=== PATIENT | female | born 1955 | race Caucasian/White ===

== ENCOUNTER → 2019-10-10 16:42 | Outpatient (CLI) | payer OTHER, SELFPAY ==
--- NOTE | 2019-10-10 16:44 | DI.MG.S_ITS ---
BILATERAL DIGITAL SCREENING MAMMOGRAM 3D/2D WITH CAD: 10/10/2019 CLINICAL: Routine screening. Comparison is made to exams dated: 09/22/2017 mammogram, 05/12/2016 mammogram, and 05/06/2015 mammogram - [facility]. There are scattered fibroglandular elements in both breasts. Current study was also evaluated with a Computer Aided Detection (CAD) system. No significant masses, calcifications, or other findings are seen in either breast. There has been no significant interval change. IMPRESSION: NEGATIVE There is no mammographic evidence of malignancy. A 1 year screening mammogram is recommended. This exam was interpreted at Station ID: [id number]. NOTE: For mammograms, a report in lay terms will be sent to the patient. Approximately 15% of breast malignancies will not be visualized mammographically. In the management of a palpable breast mass, a negative mammogram must not discourage biopsy of a clinically suspicious lesion. Electronically Signed By: Jhon rivera/ashlee:10/10/2019 17:31:51 copy to: Radha Prado letter sent: Normal Exam ACR BI-RADS Category 1: Negative [id number]
== END ==
PROVIDERS: PCP Family Medicine; Visit Provider Family Medicine
DX: Z12.31 Encounter for screening mammogram for malignant neoplasm of breast (principal)
CPT/HCPCS: 77063; 77067

== ENCOUNTER → 2019-11-16 10:22 | Outpatient (CLI) | payer OTHER, SELFPAY ==
[2019-11-19 15:45] LABS: Fecal Immunochemical Test NOT DETECTED (NOT DETECTED)
== END ==
PROVIDERS: PCP Family Medicine; Visit Provider Family Medicine
DX: Z12.11 Encounter for screening for malignant neoplasm of colon (principal)
CPT/HCPCS: 82274

== ENCOUNTER → 2020-06-18 14:19 | Outpatient (CLI) | payer OTHER, SELFPAY | PROVIDERS: PCP Family Medicine; Referring Provider Nurse Practitioner; Visit Provider Nurse Practitioner | DX: M85.851 Other specified disorders of bone density and structure, right thigh (principal); Z78.0 Asymptomatic menopausal state; M06.9 Rheumatoid arthritis, unspecified; Z82.62 Family history of osteoporosis; Z87.891 Personal history of nicotine dependence | CPT/HCPCS: 77080 ==

== ENCOUNTER → 2020-06-20 07:56 | Outpatient (CLI) | payer OTHER, SELFPAY ==
[2020-06-20 08:38] LABS: Alanine Aminotransferase 20 IU/L (<35); Albumin 4.7 g/dL (3.5-5.0); Albumin Globulin Ratio 1.6 (1.0-2.8); Alkaline Phosphatase 60 U/L (38-126); Aspartate Aminotransferase 32 IU/L (14-36); BUN Creatinine Ratio 20.3 (6-22); Bilirubin Total 0.5 mg/dL (0.2-1.3); Blood Urea Nitrogen 12 mg/dL (7-17); Calcium 10.1 mg/dL (8.4-10.2); Carbon Dioxide 31 mmol/L (22-32); Chloride 102 mmol/L (98-107); Cholesterol 202 mg/dL (140-199); Estimated Glomerular Filt Rate > 60.0 mL/min (>60); Globulin 2.9 g/dL (1.7-4.1); Glucose 99 mg/dL (80-110); HDL Cholesterol 88 mg/dL (40-60); HEMOLYSIS < 15 (0-50); LDL Cholesterol Calculated 103 mg/dL (<100); Potassium 4.4 mmol/L (3.4-5.1); Sodium 138 mmol/L (137-145); Total Protein 7.6 g/dL (6.3-8.2); Triglycerides 53 mg/dL (35-150)
[2020-06-20 08:54] LABS: Free T4, Direct Thyroxine 0.97 ng/dL (0.78-2.19)
[2020-06-20 09:08] LABS: Thyroid Stimulating Hormone 2.95 uIU/mL (0.47-4.68)
== END ==
PROVIDERS: PCP Family Medicine; Referring Provider Nurse Practitioner; Visit Provider Nurse Practitioner
DX: Z01.84 Encounter for antibody response examination (principal); E78.5 Hyperlipidemia, unspecified
CPT/HCPCS: 36415; 80053; 80061; 84439; 84443; 84481; 86769

== ENCOUNTER 2020-08-11 15:00 | Outpatient (RCR) | payer OTHER, SELFPAY ==
--- NOTE | 2020-06-26 18:45 | PT.OIE ---
Current Diagnoses Urge incontinence (06/26/20) Past Medical History (Last Updated 06/24/20 @ 08:31 by XIN Webster) Atrophic vaginitis (Acute) Breast self examination education, encounter for (Acute) Hyperlipidemia LDL goal <100 (Acute) Osteoporosis, post-menopausal (Acute) Urinary frequency (Acute) Past Surgical History History of tonsillectomy Visit Care Team Role Provider Type Jeffrey Solraes MD Family Provider Physician Primary Care Provider Specialty: Family Practice Address: [address] [place] [address], [id number] Email: [email or web address] XIN Webster Attending Provider Advanced City Marshal Referring Provider Specialty: [facility] Address: [address] [place] [address], [address] Email: [email or web address] Physical Therapy Initial Evaluation PT-OP-A Visit Information Start: 06/26/20 08:15 Freq: Status: Active Protocol: Document 06/26/20 09:04 LRN (Rec: 06/26/20 09:49 LRN [id number]) Out-Patient Physical Therapy Visit Information Visit Information Visit Type Initial Evaluation Visit Start Time 09:04 Visit Stop Time 09:49 Total Visit Minutes 45 Visit Number 1 Evaluation Information Evaluation Date 06/26/20 Precautions Precautions Hx of back pain and arthritis PT-OP-B Current Condition Start: 06/26/20 08:15 Freq: Status: Active Protocol: Document 06/26/20 09:04 LRN (Rec: 06/26/20 09:49 LRN [id number]) Current Condition History of Current Condition Onset Date 3 yrs Current Complaints No nighttime px,small leakage with strong urge History of Current Condition Small leakage with a strong urge. Vaginal atrophy that is fairly mild and the bladder is dropped on last pelvic exam . She has been subscibed a vaginal estrogen cream but stopped because had pneumonia shot the day before and was feeling kind of sick. States she knows how to do a Kegel exercise and denies problems with bowels. Prior Treatments and Tests Estrogen cream Future Testing and Treatments Planned None Treatment Goals Patient/Caregiver Goals Pt goals are to learn exercises and self care to maintain healthy status. Would like to see what her strength is and to make progress. Pt goal is to eliminate urinary leakage with a strong urge or triggers. Prior Functional Status Baseline Function- ADL's Independent Baseline Function- Mobility Independent Baseline Function- Work/School Retired Baseline Function- Recreation/Hobbies Hikes, yoga daily, kayak and garden Current Functional Impairments (Reported) Functional Limitations- ADL's Possible leakage with strong urge or triggers (mckeon in door) . 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 PT-OP-C Subjective Start: 06/26/20 08:15 Freq: Status: Active Protocol: Document 06/26/20 09:04 LRN (Rec: 06/26/20 09:49 LRN [id number]) OP-PT Subjective Patient Comments Patient Comments She asked if there was any ex to do. Patient Questionnaires Pelvic Pain and Urgency/Frequency Patient Symptom Scale Pelvic Pain Score 1 PT-OP-I Pelvic Floor Start: 06/26/20 08:15 Freq: Status: Active Protocol: Document 06/26/20 09:04 LRN (Rec: 06/26/20 09:49 LRN [id number]) Pelvic Floor Assessment Urine Urinary Symptoms Urge Sensation Leakage Size Small Leakage Cause Cough,Sneeze,Urge Other Leakage Causes Triggers: Sometimes when thinking about it, When arriving home after driving (mckeon in door), Long walk. Voiding Frequency 8 Nocturia 0 Pelvic Clock Pelvic Clock 12-3 Atrophy Pelvic Clock 3-6 Atrophy Pelvic Clock 6-9 Atrophy Pelvic Clock 9-12 Atrophy Prolapse Cystocele Grade 2 Urethrocele Grade 2 Prolapse Comments Uterus felt as dropped Perineal Descent Resting Absent Bearing Present Contraction Ability Voluntary Contraction Weak Manual Muscle Testing Left 0 Manual Muscle Testing Right 1 Manual Muscle Testing Anterior 0 Manual Muscle Testing Posterior 1 Muscle Endurance (Seconds) 6 Comments Pelvic Floor Comments ............ PT-OP-J Posture/Palpation/Skin Start: 06/26/20 08:15 Freq: Status: Active Protocol: Document 06/26/20 09:04 LRN (Rec: 06/26/20 09:49 LRN [id number]) Posture Evaluation Position Standing Evaluation View Posterior, Anteior & Lateral Head/C-Spine Posture Side Bent Left L-Spine Posture Increased Lordosis Pelvis Posture Anteriorly Tilted,(R) Iliac Crest Superior Weight Distribution Balanced Comments Posture Comments Pt lordosis of lower Thoracic spine with apex ~ T12. R PSIS was deep. R leg reported long by pt and R Iliac Crest was high. PT-OP-K Range of Motion Start: 06/26/20 08:15 Freq: Status: Active Protocol: Document 06/26/20 09:04 LRN (Rec: 06/26/20 09:49 LRN [id number]) Lumbar Spine Range of Motion Lumbar Spine Active Degrees Testing Position Standing Flexion 100 Extension 10 Hip Goniometric Range of Motion Hip Right Passive Testing Position Supine Flexion w/Knee Flexed 130 Abduction 30 Internal Rotation 50 External Rotation 50 Left Passive Testing Position Supine Flexion w/Knee Flexed 130 Abduction 30 Internal Rotation 35 External Rotation 65 PT-OP-M Strength Start: 06/26/20 08:15 Freq: Status: Active Protocol: Document 06/26/20 09:04 LRN (Rec: 06/26/20 09:49 LRN [id number]) Trunk Strength Trunk Manual Muscle Testing Core Stabilization Pt not able to maintain a stable core during strength testing of hip flexors. Hip Strength Hip Manual Muscle Testing Right Flexion (L2) 5 Normal Abduction 5 Normal Adduction 3+ Fair+ External Rotation 5 Normal Internal Rotation 5 Normal Left Flexion (L2) 5 Normal Abduction 5 Normal Adduction 3 Fair External Rotation 4+ Good+ Internal Rotation 5 Normal PT-OP-Q Treatments Start: 06/26/20 08:15 Freq: Status: Active Protocol: Document 06/26/20 09:04 LRN (Rec: 06/26/20 18:42 LRN [id number]) Self-Care/Home Management Treatment Education Patient Education Home Exercise Program Other Education Educated pt in completion of Bladder Diary. Discussed results of evaluation and plan of care. Educated pt in pelvic floor anatomy. Activities Self-Care/Home Management Activities Issued, reviewed, discussed Bladder Diary to complete over the next 7 days. Issued, reviewed, discussed HEP: Kegels quick flicks, long holds & aggravators. PT-OP-T Assessment and Plan Start: 06/26/20 08:15 Freq: Status: Active Protocol: Document 06/26/20 09:04 LRN (Rec: 06/26/20 09:49 LRN [id number]) Physical Therapy Assessment Rehab Potential Rehabilitation Potential Good Evaluation Complexity Number of Personal Factors/Comorbidities 1-2 Number of Body Systems Impaired 3 Clinical Presentation at Evaluation Evolving Impairments Impairments Activity Tolerance,ROM, Strength Goals Four Impairment Urinary leakage with a strong urge Short Term Goal (STG) Pt will be educated in Delay technique for improved bladder control. STG Duration 07/04/20 Jail Goal (LTG) Pt will be able to maintain continence in the presence of a strong urge. LTG Duration 08/25/20 Three Impairment Decrease endurance of PF, holding 6 secs prior to fatigue Jail Goal (LTG) Pt will be able to hold a PF contraction for 10 secs prior to fatigue. LTG Duration 08/25/20 Two Impairment Decreased PF strength Short Term Goal (STG) Pt will improve her PF strength to generally 1/5. STG Duration 07/11/20 Jail Goal (LTG) Pt will improve her PF strength to 3-4/5. LTG Duration 08/25/20 One Impairment Pt lacks appropriate self care HEP Senior It Architect Goal (LTG) Pt will be independent in a self care HEP to maintain continence and strength of her PF. LTG Duration 08/25/20 Assessment Summary Assessment Pt presents with cystocele & rectocele grade II. Her uterus also appears dropped. She has no areas of pain in her PF just weakness. She appears able to hold a contraction for 6 secs, but has no lift of the PF except in the posterior region, rated 1/5. The pt will benefit from skilled physical therapy to improve her PF strength and her level of continence. Physical Therapy Plan Frequency and Duration Frequency of Treatment 1x/Week Duration of Treatment 8 weeks Plan of Care Start Date 06/26/20 Plan of Care End Date 08/25/20 Therapeutic Interventions Therapeutic Interventions Home Exercise Program,Manual Therapy,Patient/Caregiver Education,Self-Care/Home Management,Soft Tissue Mobilization,Therapeutic Exercises Next Visit Focus/Plan Next Note Type Treatment Note Next Visit Plan Review bladder diary and discuss fluid intakes/outputs as appropriate. Assess proper breathing and transfers. EMG assessment and PF awareness training with E-Stim per vaginal electrode. Strengthening focusing on anterior and lateral daly. HEP: Hip ER R>L, IR left, and hip AD stretches; strengthening of hip AD's and ER on left. Educate in Delay technique for bladder retraining. PF strengthening.
--- NOTE | 2020-06-26 18:45 | PT.OPPOC ---
Physical, Occupational & Speech Therapy At [facility] Current Diagnoses Urge incontinence (06/26/20) Visit Care Team Role Provider Type Jeffrey Solares MD Family Provider Physician Primary Care Provider Specialty: Family Practice Address: [address] [place] [address], [id number] Email: [email or web address] XIN Webster Attending Provider Advanced Delivery Truck Driver Heavy Referring Provider Specialty: [facility] Practice Address: [address] [place] [address], [address] Email: [email or web address] Plan Of Care PT-OP-T Assessment and Plan Start: 06/26/20 08:15 Freq: Status: Active Protocol: Document 06/26/20 09:04 LRN (Rec: 06/26/20 09:49 LRN [id number]) Physical Therapy Assessment Rehab Potential Rehabilitation Potential Good Evaluation Complexity Number of Personal Factors/Comorbidities 1-2 Number of Body Systems Impaired 3 Clinical Presentation at Evaluation Evolving Impairments Impairments Activity Tolerance,ROM, Strength Goals Four Impairment Urinary leakage with a strong urge Short Term Goal (STG) Pt will be educated in Delay technique for improved bladder control. STG Duration 07/04/20 Child Care Specialist Goal (LTG) Pt will be able to maintain continence in the presence of a strong urge. LTG Duration 08/25/20 Three Impairment Decrease endurance of PF, holding 6 secs prior to fatigue Child Care Specialist Goal (LTG) Pt will be able to hold a PF contraction for 10 secs prior to fatigue. LTG Duration 08/25/20 Two Impairment Decreased PF strength Short Term Goal (STG) Pt will improve her PF strength to generally 1/5. STG Duration 07/11/20 Correction Goal (LTG) Pt will improve her PF strength to 3-4/5. LTG Duration 08/25/20 One Impairment Pt lacks appropriate self care HEP Child Care Specialist Goal (LTG) Pt will be independent in a self care HEP to maintain continence and strength of her PF. LTG Duration 08/25/20 Assessment Summary Assessment Pt presents with cystocele & rectocele grade II. Her uterus also appears dropped. She has no areas of pain in her PF just weakness. She appears able to hold a contraction for 6 secs, but has no lift of the PF except in the posterior region, rated 1/5. The pt will benefit from skilled physical therapy to improve her PF strength and her level of continence. Physical Therapy Plan Frequency and Duration Frequency of Treatment 1x/Week Duration of Treatment 8 weeks Plan of Care Start Date 06/26/20 Plan of Care End Date 08/25/20 Therapeutic Interventions Therapeutic Interventions Home Exercise Program,Manual Therapy,Patient/Caregiver Education,Self-Care/Home Management,Soft Tissue Mobilization,Therapeutic Exercises Next Visit Focus/Plan Next Note Type Treatment Note Next Visit Plan Review bladder diary and discuss fluid intakes/outputs as appropriate. Assess proper breathing and transfers. EMG assessment and PF awareness training with E-Stim per vaginal electrode. Strengthening focusing on anterior and lateral daly. HEP: Hip ER R>L, IR left, and hip AD stretches; strengthening of hip AD's and ER on left. Educate in Delay technique for bladder retraining. PF strengthening. Plan of Care Dates Plan of Care Start Date 06/26/20 Plan of Care End Date 08/25/20 Electronically Signed by: Elsa Momin, PT 06/28/20 398 Please Sign and Return: I have reviewed this Plan of Care and certify that the skilled therapy services above are required to meet the patient?s needs. Physician Signature Date Printed Name and Credentials Clinical Instructor Signature Printed Name and Credentials
--- NOTE | 2020-07-21 15:40 | PT.OTN ---
Current Diagnoses Urge incontinence (07/21/20) Physical Therapy Treatment Note PT-OP-A Visit Information Start: 06/26/20 08:15 Freq: Status: Active Protocol: Document 07/21/20 14:24 LRN (Rec: 07/21/20 14:44 LRN [id number]) Out-Patient Physical Therapy Visit Information Visit Information Visit Type Treatment Note Visit Start Time 14:24 Visit Stop Time 15:10 Total Visit Minutes 46 Visit Number 2 Evaluation Information Evaluation Date 06/26/20 Precautions Precautions Hx of back pain and arthritis PT-OP-B Current Condition Start: 06/26/20 08:15 Freq: Status: Active Protocol: Document 06/26/20 09:04 LRN (Rec: 06/26/20 09:49 LRN [id number]) Current Condition History of Current Condition Onset Date 3 yrs Current Complaints No nighttime px,small leakage with strong urge History of Current Condition Small leakage with a strong urge. Vaginal atrophy that is fairly mild and the bladder is dropped on last pelvic exam . She has been subscibed a vaginal estrogen cream but stopped because had pneumonia shot the day before and was feeling kind of sick. States she knows how to do a Kegel exercise and denies problems with bowels. Prior Treatments and Tests Estrogen cream Future Testing and Treatments Planned None Treatment Goals Patient/Caregiver Goals Pt goals are to learn exercises and self care to maintain healthy status. Would like to see what her strength is and to make progress. Pt goal is to eliminate urinary leakage with a strong urge or triggers. Prior Functional Status Baseline Function- ADL's Independent Baseline Function- Mobility Independent Baseline Function- Work/School Retired Baseline Function- Recreation/Hobbies Hikes, yoga daily, kayak and garden Current Functional Impairments (Reported) Functional Limitations- ADL's Possible leakage with strong urge or triggers (mckeon in door) . 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 PT-OP-I Pelvic Floor Start: 06/26/20 08:15 Freq: Status: Active Protocol: Document 06/26/20 09:04 LRN (Rec: 06/26/20 09:49 LRN [id number]) Pelvic Floor Assessment Urine Urinary Symptoms Urge Sensation Leakage Size Small Leakage Cause Cough,Sneeze,Urge Other Leakage Causes Triggers: Sometimes when thinking about it, When arriving home after driving (mckeon in door), Long walk. Voiding Frequency 8 Nocturia 0 Pelvic Clock Pelvic Clock 12-3 Atrophy Pelvic Clock 3-6 Atrophy Pelvic Clock 6-9 Atrophy Pelvic Clock 9-12 Atrophy Prolapse Cystocele Grade 2 Urethrocele Grade 2 Prolapse Comments Uterus felt as dropped Perineal Descent Resting Absent Bearing Present Contraction Ability Voluntary Contraction Weak Manual Muscle Testing Left 0 Manual Muscle Testing Right 1 Manual Muscle Testing Anterior 0 Manual Muscle Testing Posterior 1 Muscle Endurance (Seconds) 6 Comments Pelvic Floor Comments ............ PT-OP-J Posture/Palpation/Skin Start: 06/26/20 08:15 Freq: Status: Active Protocol: Document 06/26/20 09:04 LRN (Rec: 06/26/20 09:49 LRN [id number]) Posture Evaluation Position Standing Evaluation View Posterior, Anteior & Lateral Head/C-Spine Posture Side Bent Left L-Spine Posture Increased Lordosis Pelvis Posture Anteriorly Tilted,(R) Iliac Crest Superior Weight Distribution Balanced Comments Posture Comments Pt lordosis of lower Thoracic spine with apex ~ T12. R PSIS was deep. R leg reported long by pt and R Iliac Crest was high. PT-OP-K Range of Motion Start: 06/26/20 08:15 Freq: Status: Active Protocol: Document 06/26/20 09:04 LRN (Rec: 06/26/20 09:49 LRN [id number]) Lumbar Spine Range of Motion Lumbar Spine Active Degrees Testing Position Standing Flexion 100 Extension 10 Hip Goniometric Range of Motion Hip Right Passive Testing Position Supine Flexion w/Knee Flexed 130 Abduction 30 Internal Rotation 50 External Rotation 50 Left Passive Testing Position Supine Flexion w/Knee Flexed 130 Abduction 30 Internal Rotation 35 External Rotation 65 PT-OP-M Strength Start: 06/26/20 08:15 Freq: Status: Active Protocol: Document 06/26/20 09:04 LRN (Rec: 06/26/20 09:49 LRN [id number]) Trunk Strength Trunk Manual Muscle Testing Core Stabilization Pt not able to maintain a stable core during strength testing of hip flexors. Hip Strength Hip Manual Muscle Testing Right Flexion (L2) 5 Normal Abduction 5 Normal Adduction 3+ Fair+ External Rotation 5 Normal Internal Rotation 5 Normal Left Flexion (L2) 5 Normal Abduction 5 Normal Adduction 3 Fair External Rotation 4+ Good+ Internal Rotation 5 Normal PT-OP-Q Treatments Start: 06/26/20 08:15 Freq: Status: Active Protocol: Document 07/21/20 14:24 LRN (Rec: 07/21/20 14:44 LRN [id number]) Therapeutic Exercises Supine Exercises Ball Squeeze Supine Exercise Name [place]e Ball squeeze with legs rolled in and legs in neutral Reps/Minutes 10 x each Comments Extra time for finding best position of legs for anterior/ lateral wall ex. LE roll in/out Supine Exercise Name LE Roll in/out with T-Band and ball and PF contraction Reps/Minutes 10x with 6 breaths Comments Extra time for proper timing and performance of ex. Sitting Exercises Sit to stand w/breathing/PF contaction Sitting Exercise Name Sit to stand w/proper breathing/PF contraction Comments Training for PF lift awareness . Defer technique reviewed Sitting Exercise Name Defer technique training for when to use. Self-Care/Home Management Treatment Education Other Education Reviewed bladder diary and discussed possible changes in fluid intake to decreased # of voiding times during the day. Educated pt, discussed and reviewed bladder irritants. Activities Self-Care/Home Management Activities Issued & reviewed Defer technique to avoid leakage with a sudden urge. Issue & reviewed HEP for LE roll in/out with deep breathing & sitting roll in/ outs. Issued Lev 2 T-Band for LE roll in/out ex. PT-OP-T Assessment and Plan Start: 06/26/20 08:15 Freq: Status: Active Protocol: Document 07/21/20 14:24 LRN (Rec: 07/21/20 14:44 LRN [id number]) Physical Therapy Assessment Goals Four Impairment Urinary leakage with a strong urge Short Term Goal (STG) Pt will be educated in Delay technique for improved bladder control. STG Duration 07/04/20 (07/21/20: MET GOAL.) Life Care Planner Goal (LTG) Pt will be able to maintain continence in the presence of a strong urge. LTG Duration 08/25/20 Three Impairment Decrease endurance of PF, holding 6 secs prior to fatigue [facility] Goal (LTG) Pt will be able to hold a PF contraction for 10 secs prior to fatigue. LTG Duration 08/25/20 Two Impairment Decreased PF strength Short Term Goal (STG) Pt will improve her PF strength to generally 1/5. STG Duration 07/11/20 Life Care Planner Goal (LTG) Pt will improve her PF strength to 3-4/5. LTG Duration 08/25/20 One Impairment Pt lacks appropriate self care HEP [facility] Goal (LTG) Pt will be independent in a self care HEP to maintain continence and strength of her PF. LTG Duration 08/25/20 (07/21/20 Progress Towards Goals Progress Comments Pt educated in Delay technique for improved bladder control. She noted only 1x urinary leakage with a strong urge. Assessment Summary Assessment Pt PF strength improved with 1x leak in the presence of a strong urge. Per bladder diary the pt is voiding at a high frequency, probably due to her coffee, beer, wine, & sparkling carbonated drinks. The pt is wanting to decrease her frequency of voiding if she can. Pt demonstrates very good deep breathing ability and is quick to learn LE roll in/out exercise. Expect pt to progress quickly. Physical Therapy Plan Frequency and Duration Frequency of Treatment 1x/Week Duration of Treatment 8 weeks Plan of Care Start Date 06/26/20 Plan of Care End Date 08/25/20 Next Visit Focus/Plan Next Note Type Treatment Note Next Visit Plan Assess urinary leakage with a strong urge. Review last issued HEP (roll in/outs). EMG assessment and PF awareness training with E-Stim per vaginal electrode. Strengthening focusing on anterior and lateral daly. HEP: Hip ER R>L, IR left, and hip AD stretches; strengthening of hip AD's and ER on left. PF strengthening. Decrease visits to 1x/2 weeks once HEP issued for rechecks.
--- NOTE | 2020-07-28 16:04 | PT.OTN ---
Current Diagnoses Urge incontinence (07/28/20) Physical Therapy Treatment Note PT-OP-A Visit Information Start: 06/26/20 08:15 Freq: Status: Active Protocol: Document 07/28/20 12:49 LRN (Rec: 07/28/20 13:44 LRN [id number]) Out-Patient Physical Therapy Visit Information Visit Information Visit Type Treatment Note Visit Start Time 12:49 Visit Stop Time 13:43 Total Visit Minutes 54 Visit Number 3 Evaluation Information Evaluation Date 06/26/20 Precautions Precautions Hx of back pain and arthritis PT-OP-B Current Condition Start: 06/26/20 08:15 Freq: Status: Active Protocol: Document 06/26/20 09:04 LRN (Rec: 06/26/20 09:49 LRN [id number]) Current Condition History of Current Condition Onset Date 3 yrs Current Complaints No nighttime px,small leakage with strong urge History of Current Condition Small leakage with a strong urge. Vaginal atrophy that is fairly mild and the bladder is dropped on last pelvic exam . She has been subscibed a vaginal estrogen cream but stopped because had pneumonia shot the day before and was feeling kind of sick. States she knows how to do a Kegel exercise and denies problems with bowels. Prior Treatments and Tests Estrogen cream Future Testing and Treatments Planned None Treatment Goals Patient/Caregiver Goals Pt goals are to learn exercises and self care to maintain healthy status. Would like to see what her strength is and to make progress. Pt goal is to eliminate urinary leakage with a strong urge or triggers. Prior Functional Status Baseline Function- ADL's Independent Baseline Function- Mobility Independent Baseline Function- Work/School Retired Baseline Function- Recreation/Hobbies Hikes, yoga daily, kayak and garden Current Functional Impairments (Reported) Functional Limitations- ADL's Possible leakage with strong urge or triggers ([place] in door) . Personal Factors Other Personal Factors That May Effect Back pain 4 yrs ago after Therapy/Recovery bending over to nut picker something. PT-OP-C Subjective Start: 06/26/20 08:15 Freq: Status: Active Protocol: Document 07/28/20 12:49 LRN (Rec: 07/28/20 13:44 LRN [id number]) OP-PT Subjective Patient Comments Patient Comments Rare to leak with strong urge and a very small amount. PT-OP-I Pelvic Floor Start: 06/26/20 08:15 Freq: Status: Active Protocol: Document 07/28/20 12:49 LRN (Rec: 07/28/20 13:44 LRN [id number]) Pelvic Floor Assessment SEMG (uV) Baseline 2.2 Quick Contraction 11.5 10 Second Contraction 11.6 Recruitment Pattern Good Relaxation Fair Holding Fair Stability of Hold Fair SEMG Stability of Rest Fair Comments Pelvic Floor Comments Resting tone is quite variable . Quick Flicks and Long Holds ( 10 reps): See above. Quick Flicks (20 reps) with R arm behind head and pt watching screen: Avg work is 11.2 uV's avg rest is 4.5 uV's . Long holds 20 reps: Avg work is 11.7 uV's. Avg rest is 2. 6 uV's. PT-OP-J Posture/Palpation/Skin Start: 06/26/20 08:15 Freq: Status: Active Protocol: Document 06/26/20 09:04 LRN (Rec: 06/26/20 09:49 LRN [id number]) Posture Evaluation Position Standing Evaluation View Posterior, Anteior & Lateral Head/C-Spine Posture Side Bent Left L-Spine Posture Increased Lordosis Pelvis Posture Anteriorly Tilted,(R) Iliac Crest Superior Weight Distribution Balanced Comments Posture Comments Pt lordosis of lower Thoracic spine with apex ~ T12. R PSIS was deep. R leg reported long by pt and R Iliac Crest was high. PT-OP-K Range of Motion Start: 06/26/20 08:15 Freq: Status: Active Protocol: Document 06/26/20 09:04 LRN (Rec: 06/26/20 09:49 LRN [id number]) Lumbar Spine Range of Motion Lumbar Spine Active Degrees Testing Position Standing Flexion 100 Extension 10 Hip Goniometric Range of Motion Hip Right Passive Testing Position Supine Flexion w/Knee Flexed 130 Abduction 30 Internal Rotation 50 External Rotation 50 Left Passive Testing Position Supine Flexion w/Knee Flexed 130 Abduction 30 Internal Rotation 35 External Rotation 65 PT-OP-M Strength Start: 06/26/20 08:15 Freq: Status: Active Protocol: Document 06/26/20 09:04 LRN (Rec: 06/26/20 09:49 LRN [id number]) Trunk Strength Trunk Manual Muscle Testing Core Stabilization Pt not able to maintain a stable core during strength testing of hip flexors. Hip Strength Hip Manual Muscle Testing Right Flexion (L2) 5 Normal Abduction 5 Normal Adduction 3+ Fair+ External Rotation 5 Normal Internal Rotation 5 Normal Left Flexion (L2) 5 Normal Abduction 5 Normal Adduction 3 Fair External Rotation 4+ Good+ Internal Rotation 5 Normal PT-OP-Q Treatments Start: 06/26/20 08:15 Freq: Status: Active Protocol: Document 07/28/20 12:49 LRN (Rec: 07/28/20 13:44 LRN [id number]) Therapeutic Exercises Supine Exercises Long Holds Supine Exercise Name 10 hold f/b 10 relax training Equipment Used bolster, EMG biofeedback Reps/Minutes 10x Comments Training for hold without substiture ms. Quick Flicks Supine Exercise Name Quick Flicks training, legs on bolster Equipment Used bolster, EMG biofeedback Reps/Minutes 10x Comments training for contraction duration and relaxation. Double BKFO Supine Exercise Name Butterfly stretch f/b active stretch Side bilateral Reps/Minutes 60 hold, f/b active stretch Fig 4 stretch Supine Exercise Name Fig 4 stretch, f/b active stretch Reps/Minutes 60 hold, f/b active stretch Comments Determined proper stretch and phys & v cuing for active stretch LE roll in/out Supine Exercise Name LE Roll in/out with PF/T-Band and ball and PF contraction Reps/Minutes 12 PF hold f/b 12 relax: 3x each with 6 breathing Comments Pt needed cuing for proper timing and performance of ex. Sitting Exercises Hip AD stretch Sitting Exercise Name Stretch to hip AD's Side bilateral Self-Care/Home Management Treatment Education Patient Education Home Exercise Program Activities Self-Care/Home Management Activities Issued & reviewed HEP: Fig 4 stretch and written ex's of double BKFO stretch (butterfly ) and hip AD stretch (wide leg stretch). PT-OP-T Assessment and Plan Start: 06/26/20 08:15 Freq: Status: Active Protocol: Document 07/28/20 12:49 LRN (Rec: 07/28/20 13:44 LRN [id number]) Physical Therapy Assessment Goals Four Impairment Urinary leakage with a strong urge Short Term Goal (STG) Pt will be educated in Delay technique for improved bladder control. STG Duration 07/04/20 (07/21/20: MET GOAL.) Lace Sewer Goal (LTG) Pt will be able to maintain continence in the presence of a strong urge. LTG Duration 08/25/20 Three Impairment Decrease endurance of PF, holding 6 secs prior to fatigue [facility] Goal (LTG) Pt will be able to hold a PF contraction for 10 secs prior to fatigue. LTG Duration 08/25/20 Two Impairment Decreased PF strength Short Term Goal (STG) Pt will improve her PF strength to generally 1/5. STG Duration 07/11/20 Lace Sewer Goal (LTG) Pt will improve her PF strength to 3-4/5. LTG Duration 08/25/20 One Impairment Pt lacks appropriate self care HEP Lace Sewer Goal (LTG) Pt will be independent in a self care HEP to maintain continence and strength of her PF. LTG Duration 08/25/20 (07/28/20: Progressing) Progress Towards Goals Progress Comments Progressing HEP with added hip stretches. Assessment Summary Assessment Resting tone is 2.2 uV's, Quick flicks strength is 11.2- 11.5 uV's after 20 reps, Long holds is 11.6-11.7 uV's with resting tone of 2.6-3 uVs after 20 reps. Pt has difficulty returning to resting tone between contractions and she tends to use her abdominal muscles to facilitate her PF contractions . Pt tight with bilateraly hip ER and AD's bilaterally. Pt overall strength is fairly good, but per previous internal assessment she is weak anterior and left (0/5) greater than posterior and right (1/5). Physical Therapy Plan Frequency and Duration Frequency of Treatment 1x/Week Duration of Treatment 8 weeks Plan of Care Start Date 06/26/20 Plan of Care End Date 08/25/20 Next Visit Focus/Plan Next Note Type Treatment Note Next Visit Plan Assess urinary leakage with a strong urge. Strengthening focusing on anterior and lateral daly. HEP: Strengthening of hip AD's and ER on left. PF strengthening in isolation of abdominals ( anterior & L was 0/5, posterior and R was 1/5). EMG assessment and PF awareness training with E-Stim per vaginal electrode. Decrease visits to 1x/2 weeks once HEP issued for rechecks.
--- NOTE | 2020-08-05 16:10 | PT.OTN ---
Current Diagnoses Urge incontinence (08/05/20) Physical Therapy Treatment Note PT-OP-A Visit Information Start: 06/26/20 08:15 Freq: Status: Active Protocol: Document 08/05/20 15:07 LRN (Rec: 08/05/20 16:09 LRN [id number]) Out-Patient Physical Therapy Visit Information Visit Information Visit Type Treatment Note Visit Start Time 15:07 Visit Stop Time 15:42 Total Visit Minutes 35 Visit Number 4 Evaluation Information Evaluation Date 06/26/20 Precautions Precautions Hx of back pain and arthritis PT-OP-B Current Condition Start: 06/26/20 08:15 Freq: Status: Active Protocol: Document 06/26/20 09:04 LRN (Rec: 06/26/20 09:49 LRN [id number]) Current Condition History of Current Condition Onset Date 3 yrs Current Complaints No nighttime px,small leakage with strong urge History of Current Condition Small leakage with a strong urge. Vaginal atrophy that is fairly mild and the bladder is dropped on last pelvic exam . She has been subscibed a vaginal estrogen cream but stopped because had pneumonia shot the day before and was feeling kind of sick. States she knows how to do a Kegel exercise and denies problems with bowels. Prior Treatments and Tests Estrogen cream Future Testing and Treatments Planned None Treatment Goals Patient/Caregiver Goals Pt goals are to learn exercises and self care to maintain healthy status. Would like to see what her strength is and to make progress. Pt goal is to eliminate urinary leakage with a strong urge or triggers. Prior Functional Status Baseline Function- ADL's Independent Baseline Function- Mobility Independent Baseline Function- Work/School Retired Baseline Function- Recreation/Hobbies Hikes, yoga daily, kayak and garden Current Functional Impairments (Reported) Functional Limitations- ADL's Possible leakage with strong urge or triggers ([place] in [place]) . Personal Factors Other Personal Factors That May Effect Back pain 4 yrs ago after Therapy/Recovery bending over to vegetable picker something. PT-OP-C Subjective Start: 06/26/20 08:15 Freq: Status: Active Protocol: Document 08/05/20 15:07 LRN (Rec: 08/05/20 16:09 LRN [id number]) OP-PT Subjective Patient Comments Patient Comments Would like to make this the last appt for awhile. Going -mid august to [place]. One leak when coughing while hiking. Not as much urges. Not leaked with urge. Trying to extend times between urination. PT-OP-I Pelvic Floor Start: 06/26/20 08:15 Freq: Status: Active Protocol: Document 07/28/20 12:49 LRN (Rec: 07/28/20 13:44 LRN [id number]) Pelvic Floor Assessment SEMG (uV) Baseline 2.2 Quick Contraction 11.5 10 Second Contraction 11.6 Recruitment Pattern Good Relaxation Fair Holding Fair Stability of Hold Fair SEMG Stability of Rest Fair Comments Pelvic Floor Comments Resting tone is quite variable . Quick Flicks and Long Holds ( 10 reps): See above. Quick Flicks (20 reps) with R arm behind head and pt watching screen: Avg work is 11.2 uV's avg rest is 4.5 uV's . Long holds 20 reps: Avg work is 11.7 uV's. Avg rest is 2. 6 uV's. PT-OP-J Posture/Palpation/Skin Start: 06/26/20 08:15 Freq: Status: Active Protocol: Document 06/26/20 09:04 LRN (Rec: 06/26/20 09:49 LRN [id number]) Posture Evaluation Position Standing Evaluation View Posterior, Anteior & Lateral Head/C-Spine Posture Side Bent Left L-Spine Posture Increased Lordosis Pelvis Posture Anteriorly Tilted,(R) Iliac Crest Superior Weight Distribution Balanced Comments Posture Comments Pt lordosis of lower Thoracic spine with apex ~ T12. R PSIS was deep. R leg reported long by pt and R Iliac Crest was high. PT-OP-K Range of Motion Start: 06/26/20 08:15 Freq: Status: Active Protocol: Document 06/26/20 09:04 LRN (Rec: 06/26/20 09:49 LRN [id number]) Lumbar Spine Range of Motion Lumbar Spine Active Degrees Testing Position Standing Flexion 100 Extension 10 Hip Goniometric Range of Motion Hip Right Passive Testing Position Supine Flexion w/Knee Flexed 130 Abduction 30 Internal Rotation 50 External Rotation 50 Left Passive Testing Position Supine Flexion w/Knee Flexed 130 Abduction 30 Internal Rotation 35 External Rotation 65 PT-OP-M Strength Start: 06/26/20 08:15 Freq: Status: Active Protocol: Document 06/26/20 09:04 LRN (Rec: 06/26/20 09:49 LRN [id number]) Trunk Strength Trunk Manual Muscle Testing Core Stabilization Pt not able to maintain a stable core during strength testing of hip flexors. Hip Strength Hip Manual Muscle Testing Right Flexion (L2) 5 Normal Abduction 5 Normal Adduction 3+ Fair+ External Rotation 5 Normal Internal Rotation 5 Normal Left Flexion (L2) 5 Normal Abduction 5 Normal Adduction 3 Fair External Rotation 4+ Good+ Internal Rotation 5 Normal PT-OP-Q Treatments Start: 06/26/20 08:15 Freq: Status: Active Protocol: Document 08/05/20 15:07 LRN (Rec: 08/05/20 16:09 LRN [id number]) Therapeutic Exercises Supine Exercises Diagonal Abdominal Core w/PF Supine Exercise Name Diagonal Abdominal Core w/PF Side bilateral Equipment Used Wedge Reps/Minutes 4' Comments Phy & v cuing for proper performance/movement/breathing Heels on wall LE roll in/out Supine Exercise Name Heels on and off wall for LE roll in/out w/towel roll/PF Equipment Used Wedge Reps/Minutes 4' Comments Phy assist and v cuing needed for training Fig 4 stretch Supine Exercise Name Fig 4 stretch, f/b active stretch Reps/Minutes Quick reviwe LE roll in/out Supine Exercise Name LE Roll in/out with PF/T-Band and ball and PF contraction Equipment Used Wedge Reps/Minutes Review with knee bent Comments Cuing for proper timing Sidelying Exercises Hip AD Sidelying Exercise Name Hip AD Side bilateral Reps/Minutes 10 x 3 each Comments Extra time for training of proper positioning to not roll back Clamshell Sidelying Exercise Name Clamshell Side left Reps/Minutes 30x Comments Lots of phy & v cuing needed for proper positioning neck/ back/legs. Self-Care/Home Management Treatment Education Patient Education Home Exercise Program Activities Self-Care/Home Management Activities Issued & reviewed HEP: L hip ER and malachi hip AD strengthening; Phase 2 of abdominal core/PF strengthening program. PT-OP-T Assessment and Plan Start: 06/26/20 08:15 Freq: Status: Active Protocol: Document 08/05/20 15:07 LRN (Rec: 08/05/20 16:09 LRN [id number]) Physical Therapy Assessment Goals Four Impairment Urinary leakage with a strong urge Short Term Goal (STG) Pt will be educated in Delay technique for improved bladder control. STG Duration 07/04/20 (07/21/20: MET GOAL.) Shirt Bander Goal (LTG) Pt will be able to maintain continence in the presence of a strong urge. (08/05/20: One leak with cough) LTG Duration 08/25/20 (08/05/20: Improving) Three Impairment Decrease endurance of PF, holding 6 secs prior to fatigue [facility] Goal (LTG) Pt will be able to hold a PF contraction for 10 secs prior to fatigue. LTG Duration 08/25/20 Two Impairment Decreased PF strength Short Term Goal (STG) Pt will improve her PF strength to generally 1/5. STG Duration 07/11/20 Shirt Bander Goal (LTG) Pt will improve her PF strength to 3-4/5. LTG Duration 08/25/20 One Impairment Pt lacks appropriate self care HEP Shirt Bander Goal (LTG) Pt will be independent in a self care HEP to maintain continence and strength of her PF. LTG Duration 08/25/20 (08/05/20: Progressing) Progress Towards Goals Progress Comments Urinary leakage x 1 with cough , otherwise no leakage. Assessment Summary Assessment Pt urinary leakage appears to be less overall with only 1x leakage with coughing. Pt did good with strengthening of L hip ER (L weaker than R) and AD's bilaterally. She appears to have a good recall of previously issued stretches. Pt PF strength is fairly good, but per previous internal assessment she is weak anterior and left (0/5) greater than posterior and right (1/5). Physical Therapy Plan Frequency and Duration Frequency of Treatment 1x/Week Duration of Treatment 8 weeks Plan of Care Start Date 06/26/20 Plan of Care End Date 08/25/20 Next Visit Focus/Plan Next Note Type Treatment Note Next Visit Plan Next visit: Progress to phase 3 of abdominal core/PF program. PF Strengthening focusing on anterior and lateral daly. Review previously issued HEP of strengthening of hip AD's and ER on left. Check for questions from ex's on 07/28/20 . HEP: PF strengthening in isolation of abdominals ( anterior & L was 0/5, posterior and R was 1/5). EMG PF awareness training with E- Stim per vaginal electrode. Last visit before pt vacation, check internal PF strength and hip mobility, and discuss possible DC or recheck on return to [facility].
--- NOTE | 2020-08-11 16:23 | PT.OTN ---
Current Diagnoses Urge incontinence (08/11/20) Physical Therapy Treatment Note PT-OP-A Visit Information Start: 06/26/20 08:15 Freq: Status: Active Protocol: Document 08/11/20 15:14 LRN (Rec: 08/11/20 16:20 LRN [id number]) Out-Patient Physical Therapy Visit Information Visit Information Visit Type Treatment Note Visit Start Time 15:14 Visit Stop Time 16:00 Total Visit Minutes 46 Visit Number 5 Evaluation Information Evaluation Date 06/26/20 Precautions Precautions Hx of back pain and arthritis PT-OP-B Current Condition Start: 06/26/20 08:15 Freq: Status: Active Protocol: Document 06/26/20 09:04 LRN (Rec: 06/26/20 09:49 LRN [id number]) Current Condition History of Current Condition Onset Date 3 yrs Current Complaints No nighttime px,small leakage with strong urge History of Current Condition Small leakage with a strong urge. Vaginal atrophy that is fairly mild and the bladder is dropped on last pelvic exam . She has been subscibed a vaginal estrogen cream but stopped because had pneumonia shot the day before and was feeling kind of sick. States she knows how to do a Kegel exercise and denies problems with bowels. Prior Treatments and Tests Estrogen cream Future Testing and Treatments Planned None Treatment Goals Patient/Caregiver Goals Pt goals are to learn exercises and self care to maintain healthy status. Would like to see what her strength is and to make progress. Pt goal is to eliminate urinary leakage with a strong urge or triggers. Prior Functional Status Baseline Function- ADL's Independent Baseline Function- Mobility Independent Baseline Function- Work/School Retired Baseline Function- Recreation/Hobbies Hikes, yoga daily, kayak and garden Current Functional Impairments (Reported) Functional Limitations- ADL's Possible leakage with strong urge or triggers (mckeon in door) . 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 PT-OP-C Subjective Start: 06/26/20 08:15 Freq: Status: Active Protocol: Document 08/11/20 15:14 LRN (Rec: 08/11/20 16:20 LRN [id number]) OP-PT Subjective Patient Comments Patient Comments Thinks therapy has been helpful, has cut down on coffee and is now spreading voiding out to 3 hrs and doing ex's. PT-OP-I Pelvic Floor Start: 06/26/20 08:15 Freq: Status: Active Protocol: Document 07/28/20 12:49 LRN (Rec: 07/28/20 13:44 LRN [id number]) Pelvic Floor Assessment SEMG (uV) Baseline 2.2 Quick Contraction 11.5 10 Second Contraction 11.6 Recruitment Pattern Good Relaxation Fair Holding Fair Stability of Hold Fair SEMG Stability of Rest Fair Comments Pelvic Floor Comments Resting tone is quite variable . Quick Flicks and Long Holds ( 10 reps): See above. Quick Flicks (20 reps) with R arm behind head and pt watching screen: Avg work is 11.2 uV's avg rest is 4.5 uV's . Long holds 20 reps: Avg work is 11.7 uV's. Avg rest is 2. 6 uV's. PT-OP-J Posture/Palpation/Skin Start: 06/26/20 08:15 Freq: Status: Active Protocol: Document 06/26/20 09:04 LRN (Rec: 06/26/20 09:49 LRN [id number]) Posture Evaluation Position Standing Evaluation View Posterior, Anteior & Lateral Head/C-Spine Posture Side Bent Left L-Spine Posture Increased Lordosis Pelvis Posture Anteriorly Tilted,(R) Iliac Crest Superior Weight Distribution Balanced Comments Posture Comments Pt lordosis of lower Thoracic spine with apex ~ T12. R PSIS was deep. R leg reported long by pt and R Iliac Crest was high. PT-OP-K Range of Motion Start: 06/26/20 08:15 Freq: Status: Active Protocol: Document 06/26/20 09:04 LRN (Rec: 06/26/20 09:49 LRN [id number]) Lumbar Spine Range of Motion Lumbar Spine Active Degrees Testing Position Standing Flexion 100 Extension 10 Hip Goniometric Range of Motion Hip Right Passive Testing Position Supine Flexion w/Knee Flexed 130 Abduction 30 Internal Rotation 50 External Rotation 50 Left Passive Testing Position Supine Flexion w/Knee Flexed 130 Abduction 30 Internal Rotation 35 External Rotation 65 PT-OP-M Strength Start: 06/26/20 08:15 Freq: Status: Active Protocol: Document 06/26/20 09:04 LRN (Rec: 06/26/20 09:49 LRN [id number]) Trunk Strength Trunk Manual Muscle Testing Core Stabilization Pt not able to maintain a stable core during strength testing of hip flexors. Hip Strength Hip Manual Muscle Testing Right Flexion (L2) 5 Normal Abduction 5 Normal Adduction 3+ Fair+ External Rotation 5 Normal Internal Rotation 5 Normal Left Flexion (L2) 5 Normal Abduction 5 Normal Adduction 3 Fair External Rotation 4+ Good+ Internal Rotation 5 Normal PT-OP-Q Treatments Start: 06/26/20 08:15 Freq: Status: Active Protocol: Document 08/11/20 15:14 LRN (Rec: 08/11/20 16:20 LRN [id number]) Therapeutic Exercises Supine Exercises Hands/knee push Supine Exercise Name Hands/knees push Reps/Minutes 10 x Comments Extra time to determine proper positioning for ex Heels off wall Supine Exercise Name Heels off wall LE roll in/out Reps/Minutes 10x Comments Extra time to teach to do ex properly Sidelying Exercises Hip AD Sidelying Exercise Name Hip AD Side bilateral Reps/Minutes 10 x 3 each Comments Extra time for training of proper positioning to not roll back Clamshell Sidelying Exercise Name Clamshell Side left Reps/Minutes 30x Comments Lots of phy & v cuing needed for proper positioning neck/ back/legs. Neuro Re-Education Treatment Other Activities EMG Biofeedback Details PF strengthening with EMG biofeedback Comments Quick Flicks and long holds, working on increasing strength of contraction and achieving a lower resting level. Self-Care/Home Management Treatment Education Patient Education Home Exercise Program Activities Self-Care/Home Management Activities Issued & reviewed HEP: Phase 3 & 4 of abdominal core power ex. of heels off wall for roll in/out with and without resistance and hands/knees push. PT-OP-T Assessment and Plan Start: 06/26/20 08:15 Freq: Status: Active Protocol: Document 08/11/20 15:14 LRN (Rec: 08/11/20 16:20 LRN [id number]) Physical Therapy Assessment Goals Four Impairment Urinary leakage with a strong urge Short Term Goal (STG) Pt will be educated in Delay technique for improved bladder control. STG Duration 07/04/20 (07/21/20: MET GOAL.) Cut Off Saw Set Up Operator Goal (LTG) Pt will be able to maintain continence in the presence of a strong urge. (08/05/20: One leak with cough) LTG Duration 08/25/20 (08/11/20: MET GOAL) Three Impairment Decrease endurance of PF, holding 6 secs prior to fatigue Cut Off Saw Set Up Operator Goal (LTG) Pt will be able to hold a PF contraction for 10 secs prior to fatigue. LTG Duration 08/25/20 Two Impairment Decreased PF strength Short Term Goal (STG) Pt will improve her PF strength to generally 1/5. STG Duration 07/11/20 Skilled Nursing Goal (LTG) Pt will improve her PF strength to 3-4/5. LTG Duration 08/25/20 One Impairment Pt lacks appropriate self care HEP Cut Off Saw Set Up Operator Goal (LTG) Pt will be independent in a self care HEP to maintain continence and strength of her PF. LTG Duration 08/25/20 (08/05/20: Progressing) Progress Towards Goals Progress Comments LTG #4 MET. Completed core stab LE roll in /out program. Physical Therapy Plan Frequency and Duration Frequency of Treatment 1x/Week Duration of Treatment 8 weeks Plan of Care Start Date 06/26/20 Plan of Care End Date 08/25/20 Next Visit Focus/Plan Next Note Type Treatment Note Next Visit Plan Assess hip mobility & PF strength internally and assess goals, review self care HEP ( previously issued final phase 3 of abdominal core/PF program ) and DC to self care program. PF Strengthening focusing on anterior and lateral daly. Check for questions from ex' s on 07/28/20 (Fig 4 stretch and written ex's of double BKFO stretch (butterfly) and hip AD stretch (wide leg stretch)). HEP: PF strengthening in isolation of abdominals (anterior & L was 0 /5, posterior and R was 1/5). If needed, EMG PF awareness training with E-Stim per vaginal electrode.
--- NOTE | 2020-08-18 17:34 | PT-OP ANOTE ---
Message received that pt cancelled due to sore throat.
--- NOTE | 2020-12-18 17:16 | PT-OP ANOTE ---
Per teleconversation, pt thought she was done with therapy and thinks she is good. States she has a home program and has been doing exercises and feels her symptoms have lessened and she doesn't need further therapy. States she will seek therapy if needed int he future. Pt is agreeable with discharge from physical therapy.
--- NOTE | 2020-12-18 17:24 | PT.OPDS ---
Current Diagnoses Urge incontinence (08/11/20) Visit Care Team Role Provider Type Jeffrey Solares MD Family Provider Physician Primary Care Provider Specialty: [facility] Practice Address: [address] [place] [address], [id number] Email: [email or web address] Webster Attending Provider Advanced Chief Meteorologist Referring Provider Specialty: [facility] Address: [address] [place] [address], [address] Email: [email or web address] Visit Number Visit Number 5 Discharge Summary PT-OP-B Current Condition Start: 06/26/20 08:15 Freq: Status: Active Protocol: Document 06/26/20 09:04 LRN (Rec: 06/26/20 09:49 LRN [id number]) Current Condition History of Current Condition Onset Date 3 yrs Current Complaints No nighttime px,small leakage with strong urge History of Current Condition Small leakage with a strong urge. Vaginal atrophy that is fairly mild and the bladder is dropped on last pelvic exam . She has been subscibed a vaginal estrogen cream but stopped because had pneumonia shot the day before and was feeling kind of sick. States she knows how to do a Kegel exercise and denies problems with bowels. Prior Treatments and Tests Estrogen cream Future Testing and Treatments Planned None Treatment Goals Patient/Caregiver Goals Pt goals are to learn exercises and self care to maintain healthy status. Would like to see what her strength is and to make progress. Pt goal is to eliminate urinary leakage with a strong urge or triggers. Prior Functional Status Baseline Function- ADL's Independent Baseline Function- Mobility Independent Baseline Function- Work/School Retired Baseline Function- Recreation/Hobbies Hikes, yoga daily, kayak and garden Current Functional Impairments (Reported) Functional Limitations- ADL's Possible leakage with strong urge or triggers (mckeon in door) . 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 PT-OP-C Subjective Start: 06/26/20 08:15 Freq: Status: Active Protocol: Document 12/18/20 17:16 LRN (Rec: 12/18/20 17:24 LRN [id number]) OP-PT Subjective Patient Comments Patient Comments Per telephone conversation patient reports she was doing good after the last appointment and besides thinking she ran out of visits she felt she had a home program and was able to continue with her home exercises. Pt now agreeable to discharge from physical therapy. PT-OP-I Pelvic Floor Start: 06/26/20 08:15 Freq: Status: Active Protocol: Document 07/28/20 12:49 LRN (Rec: 07/28/20 13:44 LRN [id number]) Pelvic Floor Assessment SEMG (uV) Baseline 2.2 Quick Contraction 11.5 10 Second Contraction 11.6 Recruitment Pattern Good Relaxation Fair Holding Fair Stability of Hold Fair SEMG Stability of Rest Fair Comments Pelvic Floor Comments Resting tone is quite variable . Quick Flicks and Long Holds ( 10 reps): See above. Quick Flicks (20 reps) with R arm behind head and pt watching screen: Avg work is 11.2 uV's avg rest is 4.5 uV's . Long holds 20 reps: Avg work is 11.7 uV's. Avg rest is 2. 6 uV's. PT-OP-J Posture/Palpation/Skin Start: 06/26/20 08:15 Freq: Status: Active Protocol: Document 06/26/20 09:04 LRN (Rec: 06/26/20 09:49 LRN [id number]) Posture Evaluation Position Standing Evaluation View Posterior, Anteior & Lateral Head/C-Spine Posture Side Bent Left L-Spine Posture Increased Lordosis Pelvis Posture Anteriorly Tilted,(R) Iliac Crest Superior Weight Distribution Balanced Comments Posture Comments Pt lordosis of lower Thoracic spine with apex ~ T12. R PSIS was deep. R leg reported long by pt and R Iliac Crest was high. PT-OP-K Range of Motion Start: 06/26/20 08:15 Freq: Status: Active Protocol: Document 06/26/20 09:04 LRN (Rec: 06/26/20 09:49 LRN [id number]) Lumbar Spine Range of Motion Lumbar Spine Active Degrees Testing Position Standing Flexion 100 Extension 10 Hip Goniometric Range of Motion Hip Right Passive Testing Position Supine Flexion w/Knee Flexed 130 Abduction 30 Internal Rotation 50 External Rotation 50 Left Passive Testing Position Supine Flexion w/Knee Flexed 130 Abduction 30 Internal Rotation 35 External Rotation 65 PT-OP-M Strength Start: 06/26/20 08:15 Freq: Status: Active Protocol: Document 06/26/20 09:04 LRN (Rec: 06/26/20 09:49 LRN [id number]) Trunk Strength Trunk Manual Muscle Testing Core Stabilization Pt not able to maintain a stable core during strength testing of hip flexors. Hip Strength Hip Manual Muscle Testing Right Flexion (L2) 5 Normal Abduction 5 Normal Adduction 3+ Fair+ External Rotation 5 Normal Internal Rotation 5 Normal Left Flexion (L2) 5 Normal Abduction 5 Normal Adduction 3 Fair External Rotation 4+ Good+ Internal Rotation 5 Normal PT-OP-T Assessment and Plan Start: 06/26/20 08:15 Freq: Status: Active Protocol: Document 12/18/20 17:16 LRN (Rec: 12/18/20 17:24 LRN [id number]) Physical Therapy Assessment Goals Four Impairment Urinary leakage with a strong urge Short Term Goal (STG) Pt will be educated in Delay technique for improved bladder control. STG Duration 07/04/20 (07/21/20: MET GOAL.) Fpc Goal (LTG) Pt will be able to maintain continence in the presence of a strong urge. (08/05/20: One leak with cough) LTG Duration 08/25/20 (08/11/20: MET GOAL) Three Impairment Decrease endurance of PF, holding 6 secs prior to fatigue Continuum Of Care Manager Goal (LTG) Pt will be able to hold a PF contraction for 10 secs prior to fatigue. LTG Duration 08/25/20 (12/18/20: Pt unavailable for final assessment) Two Impairment Decreased PF strength Short Term Goal (STG) Pt will improve her PF strength to generally 1/5. STG Duration 07/11/20 (12/18/20: Pt unavailable for final assessment) Continuum Of Care Manager Goal (LTG) Pt will improve her PF strength to 3-4/5. LTG Duration 08/25/20 (12/18/20: Pt unavailable for final assessment) One Impairment Pt lacks appropriate self care HEP Fpc Goal (LTG) Pt will be independent in a self care HEP to maintain continence and strength of her PF. LTG Duration 08/25/20 (: MET GOAL for condition of last attendance) Assessment Summary Assessment Pt was seen for PT from to 08/11/20. Pt met goal #4 and was progressed onto a HEP appropriate for condition on her last visit. The pt was unavailable for assessment of her PF strength and endurance goals. The pt is happy with her progress and feels further physical therapy is not needed. The pt will continue with her HEP and understands if she needs further therapy in the future she will seek referral for therapy. Physical Therapy Plan Discharge Physical Therapy Discharge Reasons No Longer Attending PT Discharge Comments Pt was last seen 08/11/2020. She feels she is doing good and her symptoms have lessened and that she no longer needs to do physical therapy. She will continue with her HEP. Thank you for your referral.
== END 2021-01-06 07:40 ==
LOC: PHYS 15:00
PROVIDERS: Family Provider Family Medicine; PCP Family Medicine; Referring Provider Nurse Practitioner; Visit Provider Nurse Practitioner
DX: N39.41 Urge incontinence (principal)
CPT/HCPCS: 97110; 97112; 97162; 97535

== ENCOUNTER → 2020-12-18 16:11 | Outpatient (CLI) | payer OTHER, SELFPAY ==
--- NOTE | 2020-12-18 16:14 | DI.MG.S_ITS ---
BILATERAL DIGITAL SCREENING MAMMOGRAM 3D/2D WITH CAD: 12/18/2020 CLINICAL: Routine screening. Comparison is made to exams dated: 10/10/2019 mammogram, 09/22/2017 mammogram, and 05/12/2016 mammogram - [facility]. There are scattered fibroglandular elements in both breasts. Current study was also evaluated with a Computer Aided Detection (CAD) system. No significant masses, calcifications, or other findings are seen in either breast. There has been no significant interval change. IMPRESSION: NEGATIVE There is no mammographic evidence of malignancy. A 1 year screening mammogram is recommended. This exam was interpreted at Station ID: [id number]. NOTE: For mammograms, a report in lay terms will be sent to the patient. Approximately 15% of breast malignancies will not be visualized mammographically. In the management of a palpable breast mass, a negative mammogram must not discourage biopsy of a clinically suspicious lesion. Electronically Signed By: Nik lomax/ashlee:12/18/2020 16:38:26 copy to: Radha Prado letter sent: Normal Exam ACR BI-RADS Category 1: Negative [id number]
== END ==
PROVIDERS: Family Provider Family Medicine; PCP Family Medicine; Referring Provider Family Medicine; Visit Provider Family Medicine
DX: Z12.31 Encounter for screening mammogram for malignant neoplasm of breast (principal)
CPT/HCPCS: 77063; 77067

== ENCOUNTER → 2020-12-23 14:51 | Outpatient (CLI) | payer OTHER, SELFPAY ==
[2020-12-23] MEDS: COVID-19 VACC #1, MRNA(MOD) 100 MCG/0.5 ML VIAL IM (14:59)
== END ==
PROVIDERS: Family Provider Family Medicine; PCP Family Medicine; Visit Provider Internal Medicine
DX: Z23 Encounter for immunization (principal)
CPT/HCPCS: 0011A; 91301

== ENCOUNTER → 2021-01-20 15:32 | Outpatient (CLI) | payer OTHER, SELFPAY ==
[2021-01-20] MEDS: COVID-19 VACC #2, MRNA(MOD) 100 MCG/0.5 ML VIAL IM (15:42)
== END ==
PROVIDERS: Family Provider Family Medicine; PCP Family Medicine; Visit Provider Internal Medicine
DX: Z23 Encounter for immunization (principal)
CPT/HCPCS: 0012A; 91301

== ENCOUNTER → 2021-06-11 07:08 | Outpatient (CLI) | payer OTHER, SELFPAY ==
[2021-06-11 08:50] LABS: Add Manual Diff / Slide Review NO; Basophils Absolute Auto 0 /uL (0-100); Basophils Percent Auto 0.3 % (0-2); Eosinophils Absolute Auto 100 /uL (0-450); Eosinophils Percent Auto 1.6 % (2-4); Hemoglobin 13.2 g/dL (12.0-16.0); Lymphocytes Absolute Auto 1600 /uL (1100-4500); Lymphocytes Percent Auto 39.4 % (25-40); Mean Corpuscular Hemoglobin 30.9 PG (26-34); Mean Corpuscular Volume 93.8 fL (80-100); Monocytes Absolute Auto 300 /uL (0-900); Monocytes Percent Auto 7.9 % (3-14); Neutrophils Absolute Auto 2100 /uL (1500-7000); Neutrophils Percent Auto 50.8 % (50-75); Platelet Count 208 X10^3/uL (150-400); Red Blood Cell Count 4.26 X10^6/uL (4.0-5.2); Red Cell Distribution Width 13.4 % (11.6-14.8); White Blood Cell Count 4.1 X10^3/uL (4.5-11.0)
[2021-06-11 09:00] LABS: Hemoglobin A1C% w Est Avg Glu 5.1 % (4.0-6.0)
[2021-06-11 09:21] LABS: Alanine Aminotransferase 17 IU/L (<35); Albumin 4.4 g/dL (3.5-5.0); Albumin Globulin Ratio 1.9 (1.0-2.8); Alkaline Phosphatase 56 U/L (38-126); Aspartate Aminotransferase 27 IU/L (14-36); Bilirubin Total 0.5 mg/dL (0.2-1.3); Blood Urea Nitrogen 14 mg/dL (7-17); Calcium 9.4 mg/dL (8.4-10.2); Carbon Dioxide 28 mmol/L (22-32); Chloride 103 mmol/L (98-107); Cholesterol 196 mg/dL (140-199); Estimated Glomerular Filt Rate > 60.0 mL/min (>60); Globulin 2.3 g/dL (1.7-4.1); Glucose 88 mg/dL (80-110); HDL Cholesterol 77 mg/dL (40-60); HEMOLYSIS < 15 (0-50); LDL Cholesterol Calculated 104 mg/dL (<100); Potassium 4.1 mmol/L (3.4-5.1); Sodium 138 mmol/L (137-145); Total Protein 6.7 g/dL (6.3-8.2); Triglycerides 73 mg/dL (35-150)
[2021-06-11 09:35] LABS: Free T3, Triiodothyronine Free 3.44 pg/mL (2.77-5.27); Free T4, Direct Thyroxine 0.85 ng/dL (0.78-2.19)
[2021-06-11 09:48] LABS: Thyroid Stimulating Hormone 2.25 uIU/mL (0.47-4.68)
[2021-06-11 11:00] LABS: COVID19 -Nasal RAPID Negative (Negative)
== END ==
PROVIDERS: Specialist; Family Provider Family Medicine; PCP Family Medicine; Referring Provider Nurse Practitioner; Visit Provider Nurse Practitioner
DX: Z00.00 Encounter for general adult medical examination without abnormal findings (principal); Z20.822 Contact with and (suspected) exposure to COVID-19; E78.5 Hyperlipidemia, unspecified
CPT/HCPCS: 36415; 80053; 80061; 83036; 84439; 84443; 84481; 85025; 87635

== ENCOUNTER 2021-06-12 08:30 | Day surgery (SDC) | payer OTHER, SELFPAY ==
[2021-06-12] VITALS (7 sets, daily range): BP systolic 103–120; BP diastolic 52–70; PULSE 48–70; RESP 12–16; TEMP 36.3–36.7; O2SAT 96–99; BMI 21.9
[2021-06-12] MEDS: LACTATED RINGERS 1,000 ML 200 ML IV (09:00)
--- NOTE | 2021-06-12 10:31 | PM.HP.1 ---
History of Present Illness History of Present Illness Chief complaint: SCREENING COLONOSCOPY Narrative: Patient is a woman who has not had a colonoscopy in 12 years. She is here for colonoscopy screening For cancer. Patient History Medical History Atrophic vaginitis Hyperlipidemia LDL goal <100 Osteoarthritis (03/11/15) Osteopenia Osteoporosis, post-menopausal Sebaceous cyst Urinary frequency Surgical History History of tonsillectomy Family & Social History Family History Father Mental health problem Arthritis Mother Arthritis Tobacco & Substance use: Smoking Status Never smoker alcohol intake current alcohol intake frequency a few times a week Substance Use Type does not use Meds Home Medications and Allergies Home Medications Medication Instructions Recorded Confirmed Type PCV-13 vaccine See Rx Instructions IM ONCE #1 each 06/10/20 06/10/20 Rx Shingrix vaccine See Rx Instructions IM ONCE #1 each 06/10/20 06/10/20 Rx Tetanus vaccine See Rx Instructions IM ONCE #1 each 06/10/20 06/10/20 Rx conjugated estrogens 0.625 mg/gram 0.625 mg VAG DAILY #30 gram 05/15/21 06/12/21 Rx vaginal cream Allergies Allergy/AdvReac Type Severity Reaction Status Date / Time No Known Drug Allergies Allergy Verified 06/12/21 09:30 Review of Systems Review of Systems Narrative: No cardiopulmonary GI symptoms. No new seizures or blackouts. Had COVID in January of 2020. Has received the vaccine. Exam Vital Signs (past 8 hours): - 06/12/21 09:40 Temperature 97.4 F L Pulse Rate 70 Respiratory Rate 14 Blood Pressure 120/67 Pulse Oximetry 98 Oxygen Delivery Method Room Air Narrative Exam Narrative: Pleasant cooperative patient no apparent distress. Lungs are clear to auscultation. No rales or rhonchi. Heart regular rate and rhythm no murmur gallop. Abdomen is soft nontender without mass. No obvious hernias. Patient is alert and oriented x3. Assessment & Plan Assessment & Plan narrative: The patient for a screening colonoscopy. I have discussed the procedure with them. Risks of bleeding, perforation which would necessitate major operation, failure to find remove all lesions, the potential tattoo were all discussed. All questions were answered. They wished to proceed.
--- NOTE | 2021-06-12 10:33 | PM.PREOP ---
Pre-operative Note COVID-19 COVID-19 status: Negative Result date/Date tested (Pos, Neg/Pending): 06/11/21 Interval Note History & Physical reviewed/Exam performed by Physician: Yes Changes to H&P: No ASA Class (for procedural sedation): I
[2021-06-12] MEDS: MIDAZOLAM 5 MG/5 ML VIAL IV (10:41)
[2021-06-12] MEDS: fentaNYL 250 MCG/5 ML INJ IV (10:42)
--- NOTE | 2021-06-12 11:03 | P.OP.ENDO_ITS ---
Operative Date/Time/Diagnoses Time of procedure: 11:03 Pre-op diagnosis: screening exam. Last exam 12 years ago. Post-op diagnosis: same Procedure & Clinicians Study performed: Colonoscopy Same procedure as scheduled: Yes Indications: screening Surgeon: Chago Adams Procedure Notes SCOAP/Timeout: performed Procedure in detail: The patient was placed in the left lateral decubitus position and underwent IV sedation directed by the surgeon consisting of fentanyl and Versed. Digital exam was Unremarkable. The scope was inserted and advanced through the rectum into the sigmoid, descending, transverse, and ascending colon. very rare diverticulum were noted.. The cecum was reached identified by the ileocecal valve and the appendiceal opening. The ileocecal valve was successfully cannulated. The terminal ileum was normal in shea earance. The scope was gradually brought out. No Polyps were found . The scope ultimately was retroflexed in the rectum. The appearance was normal. The scope was removed and the patient tolerated the procedure well. Scope withdrawal time: almost 9 minutes Sedation minutes: 16 Findings: diverticulosis ( rare) Specimen(s): none sent Complications: none Post-procedure Recommendations: Colonscopy in 10 years Follow up: as needed Disposition: PACU
== END 2021-06-12 12:16 | disposition home or self-care (01) ==
PROVIDERS: Family Provider Family Medicine; PCP Family Medicine; Referring Provider Specialist; Visit Provider Specialist
PROC: 0DJD8ZZ Inspection of Lower Intestinal Tract, Via Natural or Artificial Opening Endoscopic (ICD-10-PCS; CPT 45378; principal; 2021-06-12 09:30)
DX: Z12.11 Encounter for screening for malignant neoplasm of colon (principal); K57.30 Diverticulosis of large intestine without perforation or abscess without bleeding
CPT/HCPCS: 45378; 99152; J2250; J3010

== ENCOUNTER → 2022-04-09 11:10 | Outpatient (CLI) | payer MEDICARE, OTHER, SELFPAY ==
--- NOTE | 2022-04-09 11:17 | DI.MG.S_ITS ---
BILATERAL DIGITAL SCREENING MAMMOGRAM 3D/2D WITH CAD: 04/09/2022 CLINICAL: Routine screening. Comparison is made to exams dated: 12/18/2020 mammogram, 10/10/2019 mammogram, 05/12/2016 mammogram, and 09/22/2017 mammogram - [facility]. There are scattered fibroglandular elements in both breasts. Current study was also evaluated with a Computer Aided Detection (CAD) system. No significant masses, calcifications, or other findings are seen in either breast. There has been no significant interval change. IMPRESSION: NEGATIVE There is no mammographic evidence of malignancy. A 1 year screening mammogram is recommended. This exam was interpreted at Station ID: [id number]. NOTE: For mammograms, a report in lay terms will be sent to the patient. Approximately 15% of breast malignancies will not be visualized mammographically. In the management of a palpable breast mass, a negative mammogram must not discourage biopsy of a clinically suspicious lesion. Electronically Signed By: Rene bullock/ashlee:04/09/2022 12:56:21 copy to: Radha Prado letter sent: Normal Exam ACR BI-RADS Category 1: Negative [id number]
== END ==
PROVIDERS: Family Provider Family Medicine; PCP Nurse Practitioner; Referring Provider Nurse Practitioner; Visit Provider Nurse Practitioner
DX: Z12.31 Encounter for screening mammogram for malignant neoplasm of breast (principal)
CPT/HCPCS: 77063; 77067